=== PATIENT | female | born 1950 | race Caucasian/White ===

== ENCOUNTER 2022-08-13 09:04 | Emergency (ER) | payer MEDICARE, OTHER ==
[~2022-08-13] VITALS: Ht 175.3 cm; Wt 77.1 kg
[~2022-08-13 09:04] MED LIST: PROLIA60 MG/1 ML
== END 2022-08-13 14:45 | disposition home or self-care (01) ==
LOC: ER 09:22
DX: N81.10 Cystocele, unspecified (principal); F17.210 Nicotine dependence, cigarettes, uncomplicated
CPT/HCPCS: 99282

== ENCOUNTER → 2024-08-20 | Day surgery (SDC) | payer MEDICARE ==
[2024-08-17 12:17] LABS: BASOPHILS # (AUTO) 0.1 (0.0-0.1); BASOPHILS % 0.9 % (0.0-1.0); EOSINOPHILS # (AUTO) 0.1 (0.0-0.4); EOSINOPHILS % 0.9 % (0.0-6.0); HEMATOCRIT 41.7 % (34.2-44.1); HEMOGLOBIN 13.8 g/dL (12.0-16.0); LYMPHOCYTES # (AUTO) 1.6 (1.0-3.2); LYMPHOCYTES % 28.1 % (18.0-39.1); MEAN CORPUSCULAR HEMOGLOBIN 30.7 pg (28-32); MEAN CORPUSCULAR HGB CONC 33.1 g/dL (31-35); MEAN CORPUSCULAR VOLUME 92.7 fL (81-99); MONOCYTES # (AUTO) 0.5 (0.2-0.8); MONOCYTES % 8.5 % (4.4-11.3); NEUTROPHILS # (AUTO) 3.5 (2.1-6.9); NEUTROPHILS % 61.3 % (38.7-80.0); PLATELET COUNT 204 x10e3/uL (140-360); RED CELL DISTRIBUTION WIDTH 12.8 % (11.7-14.4); WHITE BLOOD COUNT 5.77 x10e3/uL (4.8-10.8)
[2024-08-17 12:43] LABS: ANION GAP 13.3 mmol/L (8-16); CREATININE, SERUM 0.72 mg/dL (0.57-1.11); POTASSIUM 4.3 mmol/L (3.5-5.1)
[~2024-08-20] MED LIST changes: +ACETAMINOPHEN 1000 MG/100 ML 0 ML IV ONE; +ACETAMINOPHEN 1000 MG/100 ML 100 ML IV ONE; +APPLE CIDER VI300 MG; +CALCIUM500 MG; +DEXAMETHASONE SOD PHOS INJ 4 MG/ML SDV ONE; +FENTANYL CITRATE/PF 100MCG/2 ML INJ ONE; +KETOROLAC TROMETHAMINE 30 MG/ML VIAL ONE; +LIDOCAINE HCL 2% LOCAL INJ 5 ML SDV VIAL INJ ONE; +METOCLOPRAMIDE HCL 10 MG/2ML VIAL ONE; +MULTI-VITAMIN1 EACH PO; +ONDANSETRON HCL INJ 2MG/ML 2ML 2 MG/ML VIAL ONE; +PROPOFOL IV EMULSION 10 MG/ML 20 ML VIAL ONE; +ROSUVASTATIN CA10 MG PO; +VITAMIN D31250 MCG
[2024-08-20 11:21] VITALS: BP 136/84; PULSE 89; RESP 18; O2SAT 97
[2024-08-20] MEDS: LACTATED RINGER'S 1,000 ML ONE (13:00)
[2024-08-20] MEDS: CEFAZOLIN SODIUM 2 GM ONE (13:01)
== END | disposition home or self-care (01) ==
LOC: OR 06:48
PROVIDERS: ATTEND Podiatrist Foot Surgery
DX: M66.871 Spontaneous rupture of other tendons, right ankle and foot (principal); S93.431A Sprain of tibiofibular ligament of right ankle, initial encounter; S92.351A Displaced fracture of fifth metatarsal bone, right foot, initial encounter for closed fracture; M81.0 Age-related osteoporosis without current pathological fracture; E78.5 Hyperlipidemia, unspecified; X58.XXXA Exposure to other specified factors, initial encounter; Z88.2 Allergy status to sulfonamides; Z01.810 Encounter for preprocedural cardiovascular examination; Z01.812 Encounter for preprocedural laboratory examination; Z01.818 Encounter for other preprocedural examination; Z79.899 Other long term (current) drug therapy
CPT/HCPCS: 27658; 27695; 28485; 36415; 71046; 80048; 85025; 93005; C1713 ×2; J0131; J1100; J2003; J2405; J2704; J2765; J3010; J7121; J1885